=== PATIENT | male | born 1950 | race Caucasian/White ===

== ENCOUNTER 2018-02-14 10:00 | Outpatient (RCR) | payer MEDICARE ==
[~2018-02-14 10:00] MED LIST: ATOR10TA66 PO; HYDR12.5 PO; HYDR28.3 TP; HYOS0.1281 PO; LEVO500T2 PO; LOSA100T57 PO; LOSA1TAB26 PO; NITR100C10 PO; OXYB5TAB9 PO; POTA99TA17 PO; SIME80TA16 PO; TAMS0.4C2 PO
[2018-02-14 10:09] LABS: BILIRUBIN,URINE NEGATIVE (NEGATIVE); CLARITY,URINE SLIGHTLY CLOUDY; COLOR,URINE YELLOW; GLUCOSE, URINE (UA) NEGATIVE (NEGATIVE); KETONES,URINE NEGATIVE (NEGATIVE); LEUKOCYTE ESTERASE ,URINE 3+ (NEGATIVE); NITRITE,URINE NEGATIVE (NEGATIVE); PH,URINE 7 (5-9); PROTEIN,URINE NEGATIVE (NEGATIVE); UROBILINOGEN,URINE NORMAL (NORMAL)
[2018-02-14 10:16] LABS: BASOPHILS # (AUTO) 0.1 10^3/uL (0.0-0.1); BASOPHILS % (AUTO) 1 % (0-10); EOSINOPHILS # (AUTO) 0.8 10^3/uL (0.0-0.3); EOSINOPHILS % (AUTO) 9 % (0-10); HEMATOCRIT 37 % (40-54); HEMOGLOBIN 12.7 G/DL (13.3-17.7); LYMPHOCYTES # (AUTO) 0.7 X 10^3 (1.0-4.0); LYMPHOCYTES % (AUTO) 8 % (12-44); MEAN CORPUSCULAR HEMOGLOBIN 32 PG (25-34); MEAN CORPUSCULAR HGB CONC 34 G/DL (32-36); MEAN CORPUSCULAR VOLUME 94 FL (80-99); MEAN PLATELET VOLUME 9.1 FL (7.4-10.4); MONOCYTES # (AUTO) 0.2 X 10^3 (0.0-1.0); MONOCYTES % (AUTO) 2 % (0-12); NEUTROPHILS # (AUTO) 6.8 X 10^3 (1.8-7.8); NEUTROPHILS % (AUTO) 80 % (42-75); PLATELET COUNT 419 10^3/uL (130-400); RED CELL DISTRIBUTION WIDTH 12.3 % (10.0-14.5); WHITE BLOOD COUNT 8.5 10^3/uL (4.3-11.0)
[2018-02-14 10:20] LABS: BACTERIA,URINE FEW /HPF; SQUAMOUS EPITHELIAL CELL,UR 0-2 /HPF; WBC,URINE >100 /HPF
[2018-02-14 10:36] LABS: BUN/CREATININE RATIO 28; CALCIUM 9.5 MG/DL (8.5-10.1); CARBON DIOXIDE 27 MMOL/L (21-32); CHLORIDE 104 MMOL/L (98-107); CREATININE SERUM 0.86 MG/DL (0.60-1.30); GFR ESTIMATED > 60; GLUCOSE 104 MG/DL (70-105); POTASSIUM 4.3 MMOL/L (3.6-5.0); SODIUM 139 MMOL/L (135-145)
[2018-02-14 10:43] LABS: BAND NEUTROPHILS 4 %; BASOPHILS % (MANUAL) 1 %; EOSINOPHILS % (MANUAL) 8 %; LYMPHOCYTES % (MANUAL) 8 %; MONOCYTES % (MANUAL) 2 %; NEUTROPHILS % (MANUAL) 77 %; RBC MORPH NORMAL
== END 2018-05-15 | disposition home or self-care (01) ==
LOC: LAB 10:00
PROVIDERS: ATTEND Internal Medicine
DX: A41.9 Sepsis, unspecified organism (principal); N39.0 Urinary tract infection, site not specified; E87.6 Hypokalemia; D72.829 Elevated white blood cell count, unspecified
CPT/HCPCS: 36415; 80048; 81000; 85007; 85027; 87088

== ENCOUNTER 2018-10-19 12:39 | Outpatient (RCR) | payer MEDICARE | END 2019-01-17 | disposition home or self-care (01) | LOC: ONC 12:39 | PROVIDERS: ATTEND Radiology Radiation Oncology | DX: C61 Malignant neoplasm of prostate (principal) | CPT/HCPCS: 99204 ==

== ENCOUNTER → 2019-03-24 | Outpatient (CLI) | payer MEDICARE ==
--- NOTE | 2019-03-24 12:59 | Diagnostic Imaging Report ---
EXAMINATION: Left ankle 3 views. HISTORY: INJURY AT HOME COMPARISON: None available. FINDINGS: Mortise is intact. Talar dome is normal. There is an osseous fragment at the tip of the medial malleolus likely reflecting an old injury as it appears well corticated. No acute fracture is seen. IMPRESSION: 1. No acute fracture of the left ankle. Dictated by: Dictated on workstation # [id number]
== END ==
LOC: RAD 11:32
PROVIDERS: ATTEND Internal Medicine
DX: S99.912A Unspecified injury of left ankle, initial encounter (principal); Y92.009 Unspecified place in unspecified non-institutional (private) residence as the place of occurrence of the external cause
CPT/HCPCS: 73610

== ENCOUNTER 2019-03-28 07:43 | Outpatient (RCR) | payer MEDICARE ==
[2019-01-18 15:30] LABS: CREATININE SERUM 0.88 MG/DL (0.60-1.30)
== END 2019-04-18 | disposition home or self-care (01) ==
LOC: ONC 07:43
PROVIDERS: ATTEND Radiology Radiation Oncology
DX: Z51.0 Encounter for antineoplastic radiation therapy (principal); C61 Malignant neoplasm of prostate
CPT/HCPCS: 36415; 77300; 77301; 77334; 77336; 77338; 77385; 82565; 84520; 99211

== ENCOUNTER 2019-05-15 06:09 | Outpatient (CLI) | payer MEDICARE ==
[~2019-05-15] VITALS: Ht 185 cm; Wt 92.2 kg
[~2019-05-15 06:09] MED LIST changes: +OXYB5TAB13 PO; -OXYB5TAB9 PO
[2019-05-15] MEDS ORDERED: CALC-6 PO (09:52)
[2019-05-15] MEDS ORDERED: VENL150C PO (09:52)
[2019-05-15] MEDS ORDERED: TMSL.4C PO (09:52)
[2019-05-15] MEDS ORDERED: CHOL500049 PO (09:52)
[2019-05-15] MEDS ORDERED: LEUP45SY IM (09:52)
== END 2019-05-15 10:23 | disposition home or self-care (01) ==
LOC: PREOP 06:09
PROVIDERS: ATTEND Internal Medicine
DX: Z01.818 Encounter for other preprocedural examination (principal)